=== PATIENT | male | born 1990 | race African-American/Black ===

== ENCOUNTER 2017-11-22 23:42 | Emergency (ER) | payer BC ==
[2017-11-23 00:32] VITALS: BP 126/66; PULSE 65; TEMP 98.3; BMI 25.9
[2017-11-23] MEDS ORDERED: IBUPROFEN 600 MG TABLET (FP) PO ONE ×2 (01:41→01:49)
--- NOTE | 2017-11-23 01:41 | PDOC ---
History of Present Illness - General History Source: Patient Exam Limitations: No Limitations - History of Present Illness Initial Comments: 11/23/17 01:45 The patient is a 27 year old male, with no significant past medical history, who presents to the emergency department with, right first toe pain s/p stubbing his toe on the curb while running. He denies numbness, tingling or loss of sensation. He denies any recent nausea or vomiting. He denies any recent chest pain or shortness of breath. Allergies: NKA <Chapin Bertrand - Last Filed: 11/23/17 01:45> <Marcia Kim - Last Filed: 11/23/17 02:21> - General Chief Complaint: Pain Stated Complaint: FOOT INJURY Time Seen by Provider: 11/23/17 00:22 Past History <Chapin Bertrand Last Filed: 11/23/17 01:45> - Suicide/Smoking/Psychosocial Hx Smoking History: Smoker current status UNK Have you smoked in the past 12 months: No Information on smoking cessation initiated: No Hx Alcohol Use: No Drug/Substance Use Hx: No <Marcia Kim - Last Filed: 11/23/17 02:21> - Past Medical History Allergies/Adverse Reactions: Allergies Allergy/AdvReac Type Severity Reaction Status Date / Time No Known Allergies Allergy Verified 11/23/17 00:32 Home Medications: Ambulatory Orders NK [No Known Home Medication] 11/23/17 Review of Systems - Review of Systems Comments:: 11/23/17 01:45 GENERAL/CONSTITUTIONAL: No fever or chills. No weakness. HEAD, EYES, EARS, NOSE AND THROAT: No change in vision. No ear pain or discharge. No sore throat. CARDIOVASCULAR: No chest pain or shortness of breath. RESPIRATORY: No cough, wheezing, or hemoptysis. GASTROINTESTINAL: No nausea, vomiting, diarrhea or constipation. GENITOURINARY: No dysuria, frequency, or change in urination. MUSCULOSKELETAL: +Right first toe pain. No neck or back pain. SKIN: No rash NEUROLOGIC: No headache, vertigo, loss of consciousness, or change in strength/ sensation. ENDOCRINE: No increased thirst. No abnormal weight change. HEMATOLOGIC/LYMPHATIC: No anemia, easy bleeding, or history of blood clots. ALLERGIC/IMMUNOLOGIC: No hives or skin allergy. <Chapin Bertrand Filed: 11/23/17 01:45> *Physical Exam - Vital Signs Last Vital Signs Temp Pulse Resp BP Pulse Ox 98.3 F 65 17 126/66 99 11/23/17 00:27 11/23/17 00:27 11/23/17 00:27 11/23/17 00:27 11/23/17 00:27 - Physical Exam Comments: 11/23/17 01:45 GENERAL: Awake, alert, and fully oriented. Extremities: DP and TP Pulses intact. Capillary refill normal. Sensation intact. <Chapin Bertrand - Last Filed: 11/23/17 01:45> - Vital Signs Last Vital Signs Temp Pulse Resp BP Pulse Ox 98.3 F 65 17 126/66 99 11/23/17 00:27 11/23/17 00:27 11/23/17 00:27 11/23/17 00:27 11/23/17 00:27 <Marcia Kim - Last Filed: 11/23/17 02:21> ED Treatment Course - RADIOLOGY Radiology Studies Ordered: Category Date Time Status FOOT-RIGHT [RAD] Stat Radiology 11/23/17 00:51 Taken <Marcia Kim - Last Filed: 11/23/17 02:21> *DC/Admit/Observation/Transfer - Attestations Scribe Attestion: 11/23/17 01:46 Documentation prepared by Chapin Bertrand, acting as medical scientist for Marcia Kim MD. <Chapin Bertrand - Last Filed: 11/23/17 01:45> - Discharge Dispostion Admit: No <Marcia Kim - Last Filed: 11/23/17 02:21> Diagnosis at time of Disposition: Toe dislocation, Toe fracture, right - Discharge Dispostion Disposition: HOME Condition at time of disposition: Improved - Patient Instructions Printed Discharge Instructions: DI for Dislocated Toe, DI for Toe Fracture
== END 2017-11-23 02:44 | disposition home or self-care (01) ==
LOC: JER 23:42
DX: S92.421A Displaced fracture of distal phalanx of right great toe, initial encounter for closed fracture (principal); W22.09XA Striking against other stationary object, initial encounter; Y93.89 Activity, other specified; Y92.480 Sidewalk as the place of occurrence of the external cause; Y99.8 Other external cause status
CPT/HCPCS: 73630-TC-RT; 73660-TC; 99281-25